=== PATIENT | female | born 1950 | race Caucasian/White ===

== ENCOUNTER → 2016-03-26 | Day surgery (SDC) | payer MEDICARE ==
--- NOTE | 2016-03-19 10:34 | MH ---
cc: SOFY QUIROGA DATE OF ADMISSION 03/26/2016 PRINCIPAL DIAGNOSIS Left breast cancer. ATTENDING PHYSICIAN Sofy Quiroga MD HISTORY OF PRESENT ILLNESS The patient is a 65-year-old female who has been seen previously for palpable breast cysts requiring aspiration. A screening mammogram July 11, 2015 at [facility] demonstrated dense breasts and an area of indeterminate microcalcifications in the 12 o'clock location of the left breast. This was confirmed with a diagnostic left breast mammogram on August 09 but it was felt the calcifications were likely benign and the study was called BI-RADS 3. A 6-month follow-up was recommended and this was performed on January 20 which demonstrated indeterminate microcalcifications and stereotactic biopsy was recommended. This was performed on February 09, 2010 and demonstrated invasive well-differentiated ductal carcinoma as well as intermediate grade DCIS. She has no other history of breast disease. MEDICAL PROBLEMS Include: 1. Hyperlipidemia. 2. Depression. 3. Gastroesophageal reflux. 4. And osteopenia. PAST SURGERIES Prior sugar included: 1. A colectomy for constipation in 2011. 2. Tubal ligation. 3. And hysterectomy in 1994 with intact ovaries. CURRENT MEDICATIONS Include: 1. Aspirin 81 mg daily. 2. Calcium 600 mg b.i.d. 3. Lovastatin 40 mg q.h.s. 4. Probiotic daily. 5. Sertraline 150 mg q.h.s. 6. B complex vitamin. 7. Vitamin B6 100 mg daily. 8. Vitamin D3 1000 units daily. 9. Zantac 150 mg q.h.s. 10. Zolpidem 10 mg q.h ALLERGIES She has no known drug allergies. FAMILY HISTORY Noncontributory. REPRODUCTIVE HISTORY . Menarche age 12, first child age 17, menopause age 43. She does not take hormone replacement. REVIEW OF SYSTEMS 12-point review of systems was significant for gastroesophageal reflux but was otherwise unremarkable. PHYSICAL EXAMINATION VITAL SIGNS: She was 5 feet 4-1/2 inches tall and weighed 138 pounds with a BMI of 23.3. Blood pressure was 141/74, temperature 98, heart rate 64, respirations 17. HEENT: Exam was unremarkable. NECK: The neck was supple with no adenopathy or thyromegaly. CHEST: The chest was clear throughout. CARDIOVASCULAR: Exam revealed a normal S1 and S2 with no murmurs, rubs or gallops. BREASTS: Exam revealed fibrocystic change and asymmetry with the right breast being larger than the left. There was no nipple discharge and no palpable masses. There was a healed biopsy in the 12 o'clock left breast. ABDOMEN: The abdomen was soft and nontender throughout with a transverse lower abdominal scar. The remainder of her exam was unremarkable. IMPRESSION Ms. Jarrett has clinical stage I breast cancer. Breast MRI demonstrated known carcinoma in the upper central left breast with no other areas of abnormality. She did have some enhancement in the liver on her MRI but subsequent imaging demonstrated liver cysts. She is interested in breast conservation and sentinel lymph node biopsy and understands the risks and benefits of the procedure and has agreed to proceed. MD RAMA Hernandez/KIRK /4:17 PM /10:29 AM
[~2016-03-26] MED LIST: B-COCAP9 PO; BUPIVACAINE HCL PF 0.5% 10 ML VIAL ONE; ISOSULFAN BLUE 50 MG/5 ML VIAL SQ ONE; KETOROLAC TROMETHAMINE 30 MG/ML (IVP) VIAL ONE; LACTATED RINGER'S 1000 ML INJ 1,000 ML ONE; LOVA40TA PO; MEVA40TA PO; MIDAZOLAM HCL 2 MG/2 ML VIAL ONE; MULT-135 PO; ONDANSETRON HCL 4 MG/2 ML VIAL IV PUSH ONE; PROPOFOL 200 MG/20 ML AMP IV ONE; SERT100 PO; SODIUM CHLORIDE 0.9% INJ 10 ML ONE; VITA100036 PO; ZOLO100T PO; ceFAZolin 2 GM PREMIX 50 ML ONE
--- NOTE | 2016-03-26 13:38 | TN ---
cc: SOFY QUIROGA DATE OF SURGERY: 03/26/2016 PRINCIPAL DIAGNOSIS Left breast cancer. PROCEDURE PERFORMED Left breast needle-localized lumpectomy and left axillary sentinel lymph node biopsy. SURGEON Sofy Quiroga ANESTHESIA General via LMA device. INDICATION The patient is a 65-year-old female with a recently diagnosed left breast cancer. She has opted for breast conservation and now presents for the procedure. FINDINGS At the time of surgery four sentinel lymph nodes were removed. #1 was 2+ blue and had a count of 2891. #2 was 1+ blue with a count of 1029. Lymph nodes 3 and 4 were not blue and had counts of 87 and 52 respectively. The background count was 2. The lymph nodes did not look suspicious and touch prep was not performed. Specimen mammogram did demonstrate an intact wire and the biopsy clip was within the specimen. PROCEDURE After informed consent was obtained and site verification was performed, the patient was brought to the major radiology suite where she underwent needle localization of her prior biopsy site as well as peritumoral radionuclide injection. She was then brought to the major operating room where she underwent general anesthesia via an LMA device. The left breast and arm were prepped and draped in sterile fashion. Two cc's of half-strength Lymphazurin were injected in the subareolar left breast and a five-minute massage was performed. She did receive a single dose of IV Ancef and sequential compression hose were placed. The left breast and arm were then prepped and draped in sterile fashion. An incision was anesthetized at the inferior aspect of the left axillary hairline and both sharp and electrocautery dissection were performed until the clavipectoral fascia was divided and the level I axilla was entered. Two mid level I lymph nodes were immediately identified and each was circumferentially dissected free from surrounding structures using the Harmonic scalpel. These were the most prominent lymph nodes with the counts as noted. Some lower adjacent mid level I lymph nodes were also circumferentially dissected free from surrounding structures using the Harmonic scalpel. Two of these lymph nodes did have a count as noted and the four lymph nodes were sent as permanent sentinel node specimens. Some adjacent axillary tissue was sent as a permanent specimen. Good hemostasis was noted and the thoracodorsal, intercostal brachial, long thoracic, and axillary vein remained intact throughout the dissection. The wound was closed using interrupted 3-0 Vicryl subcutaneous sutures and a 4-0 Monocryl subcuticular suture. An incision was then created in the periareolar left breast to identify the lesion at 2 o'clock 4 cm from the nipple. Both sharp and electrocautery dissection were performed until the wire entry point through the skin was identified and secured with a hemostat. The wire was cut off at the skin with pin cutters and a 2-0 silk transfixion suture was placed at the wire entry point into the breast tissue. Both sharp and electrocautery dissection were performed circumferentially around the wire and the specimen was oriented with two sutures anteriorly, one short suture superiorly, and one long suture laterally. Inspection of the specimen did demonstrate that the anterior and medial margins appeared close and each of these was sharply re-excised with a stitch on the new margin and they were sent separately as permanent specimens. Hemostasis was obtained with electrocautery and the wound was closed using interrupted 3-0 Vicryl subcutaneous sutures and a 4-0 Monocryl subcuticular suture. Steri-Strips and a sterile dressing were applied. The patient tolerated the procedure well with an estimated blood loss of 50 cc. She was extubated in the operating room and brought to the recovery room in good condition. All sponge and needle counts were correct at the conclusion of the case. MD RAMA Hernandez/YOSI /1:14 PM /1:27 PM
== END | disposition home or self-care (01) ==
LOC: ESDC 06:50
PROVIDERS: ATTEND Surgery
DX: D05.12 Intraductal carcinoma in situ of left breast (principal)
CPT/HCPCS: 00400; 01610; 19125; 38525; 38792; 88307; J0690; J1885; J2250; J2405; J3010; J7120; Q9968

== ENCOUNTER → 2016-04-07 | Day surgery (SDC) | payer MEDICARE ==
[~2016-04-07] VITALS: Ht 162.6 cm; Wt 62.5 kg
[~2016-04-07] MED LIST changes: +ACETAMINOPHEN 1000 MG/100 ML VIAL IV ONE; +ACETAMINOPHEN/HYDROcodone 325 MG/5 MG TAB ONE; -BUPIVACAINE HCL PF 0.5% 10 ML VIAL ONE; +BUPIVACAINE HCL PF 0.5% 30 ML VIAL ONE; -ISOSULFAN BLUE 50 MG/5 ML VIAL SQ ONE; -KETOROLAC TROMETHAMINE 30 MG/ML (IVP) VIAL ONE; +LIDOCAINE HCL 1% 20 ML VIAL ONE; -MEVA40TA PO; +ONDANSETRON HCL 4 MG/2 ML VIAL ONE; -SERT100 PO; -SODIUM CHLORIDE 0.9% INJ 10 ML ONE; +fentaNYL CITRATE 250 MCG/5 ML AMP ONE
[2016-04-07 08:57] VITALS: BP 148/77; PULSE 56; RESP 16; TEMP 98.4; O2SAT 99
[2016-04-07 11:55] VITALS: PULSE 63
[2016-04-07 12:45] VITALS: PULSE 58; TEMP 97.8
[2016-04-07 13:30] VITALS: BP 152/59; PULSE 60; RESP 14; O2SAT 98
--- NOTE | 2016-04-13 13:06 | MP ---
cc: SOFY QUIROGA DATE OF SURGERY: 04/07/2016 PREOPERATIVE DIAGNOSIS Left breast cancer with positive inferior margin. POSTOPERATIVE DIAGNOSIS Left breast cancer with positive inferior margin. PROCEDURE PERFORMED Re-excision of left breast lumpectomy inferior margin. SURGEON Sofy Quiroga ANESTHESIA General via LMA device. INDICATION The patient is a 65-year-old female with a newly diagnosed left breast cancer who is status post lumpectomy and sentinel lymph node biopsy. 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 FINDINGS At the time of surgery the lumpectomy cavity was easily identified with a small noninfected seroma and the inferior margin was also easily identified with no gross evidence of residual disease. PROCEDURE After informed consent was obtained and site verification was performed, the patient was brought to the major operating room where she underwent general anesthesia via LMA device. She was given a single dose of IV Ancef and sequential compression hose were placed. The left breast was prepped and draped in sterile fashion. The previous periareolar lumpectomy incision at one o'clock was anesthetized with 0.5% Marcaine plain and sharply re-excised. The lumpectomy cavity was immediately identified and the inferior margin was sharply demarcated and re-excised in three segments with a stitch on the new inferior margin. These specimens were sent together as a permanent specimen and hemostasis was easily obtained with electrocautery. The wound was closed using interrupted 3-0 Vicryl subcutaneous suture and a 4-0 Monocryl subcuticular suture. Steri-Strips and a sterile dressing were applied. The patient tolerated the procedure well with an estimated blood loss of less than 50 cc and she was extubated in the operating room and brought to the recovery room in good condition. All sponge and needle counts were correct at the conclusion of the case. MD RAMA Hernandez/YOSI /12:04 PM /12:59 PM
== END | disposition home or self-care (01) ==
LOC: CSDC 08:27
PROVIDERS: ATTEND Surgery
DX: C50.912 Malignant neoplasm of unspecified site of left female breast (principal)
CPT/HCPCS: 00400; 19301; 88307; J0131; J0690; J2250; J2405; J3010; J7120; 88309